=== PATIENT | male | born 1980 | race Caucasian/White ===

== ENCOUNTER 2017-03-22 16:52 | Emergency (ER) | payer BC ==
[2017-03-22 17:05] VITALS: BP 133/98
--- NOTE | 2017-03-22 17:39 | EDM.PDOC ---
ED HPI GENERAL MEDICAL PROBLEM - General Chief Complaint: Upper Extremity Injury/Pain Stated Complaint: R ARM GOT SLAMMED IN A DOOR Time Seen by Provider: 03/22/17 17:03 Source of Information: Reports: Patient History Limitations: Reports: No Limitations - History of Present Illness INITIAL COMMENTS - FREE TEXT/NARRATIVE: 37-year-old male presents for evaluation and treatment of right arm pain, bruising and swelling. Patient reports prior to arrival in the ER he got his distal humerus stuck in a door. He states the wind caught the door and slammed the door shut over his right distal humerus. He is currently complaining of pain and swelling to the right distal humerus. He is also experiencing numbness and tingling in the right distal arm. Ecchymosis present to the right distal humerus. No open wounds or obvious deformities. Patient is right-handed. Right Arm Pain Score (Numeric/FACES): 5 - Related Data Allergies Allergy/AdvReac Type Severity Reaction Status Date / Time No Known Allergies Allergy Verified 08/11/15 17:33 Home Meds: Home Meds Insulin Regular, Human [NovoLIN R] 20 unit SUBCUT ACBREAKFAST 08/11/15 [History] Insulin Regular, Human [NovoLIN R] 40 unit SUBCUT BIDAC 08/11/15 [History] Past Medical History Endocrine/Metabolic History: Reports: Diabetes, Type I - Past Surgical History HEENT Surgical History: Reports: Tonsillectomy GI Surgical History: Reports: Appendectomy Social & Family History - Family History Family Medical History: Noncontributory - Tobacco Use Smoking Status *Q: Current Every Day Smoker Years of Tobacco use: 16 Packs/Tins Daily: 0.5 - Recreational Drug Use Recreational Drug Use: No Review of Systems - Review of Systems Review Of Systems: See Below Musculoskeletal: Reports: Arm Pain (right distal humerus). Denies: Shoulder Pain, Joint Pain (no elbow or wrist pain) Skin: Reports: Bruising (right distal posterior humerus). Denies: Wound Neurological: Reports: Numbness (right forearm), Tingling (right forearm) ED EXAM, GENERAL - Physical Exam Exam: See Below Exam Limited By: No Limitations General Appearance: Alert, WD/WN, No Apparent Distress Respiratory/Chest: No Respiratory Distress Cardiovascular: Normal Peripheral Pulses, Regular Rate, Rhythm Peripheral Pulses: 2+: Radial (R) Extremities: Other (tenderness to palpation to the right distal posterior humerus; approximately 10m in diameter ecchymosis with surrounding swelling present to the area; no obvious deformity) Neurological: Alert, Oriented, Normal Cognition Psychiatric: Normal Affect, Normal Mood Skin Exam: Warm, Dry, Ecchymosis (right distal posterior humerus) Course - Vital Signs Last Recorded V/S: Last Vital Signs Temp Pulse 91 03/22/17 17:01 Resp 18 03/22/17 17:01 BP 133/98 H 03/22/17 17:01 Pulse Ox 98 03/22/17 17:01 - Orders/Labs/Meds Orders: Active Orders 24 hr Category Date Time Status Humerus Rt [CR] Stat Exams 03/22/17 17:17 Ordered - Radiology Interpretation Free Text/Narrative:: xray of the right humerus shows no acute fractures or dislocations - Re-Assessments/Exams Free Text/Narrative Re-Assessment/Exam: 03/22/17 17:38 Reviewed the x-ray results with the patient. We'll get a sling for his comfort. Discharge instructions as documented Departure - Departure Time of Disposition: 17:38 Disposition: Home, Self-Care 01 Condition: Good Clinical Impression: Contusion Qualifiers: Encounter type: initial encounter Contusion area: upper arm Laterality: right Qualified Code(s): S40.021A - Contusion of right upper arm, initial encounter - Discharge Information Referrals: Moiz Harris Jr, MD [Primary Care Provider] - Forms: ED Department Discharge, ED Return to Work/School Form Additional Instructions: [id number] Tylenol or Motrin for pain. Ice the sore area as much as possible. Elevate the arm, above the level of the heart as much as possible. Sling for your comfort. Follow-up with your family care provider if your symptoms are not much improved in 7 days. Please return to the ER if your symptoms change or worsen. Note given for work. - My Orders Last 24 Hours: My Active Orders 03/22/17 17:17 Humerus Rt [CR] Stat - Assessment/Plan Last 24 Hours: My Active Orders 03/22/17 17:17 Humerus Rt [CR] Stat
--- NOTE | 2017-03-23 07:17 | CR ---
Right humerus: Two views of the right humerus were obtained. Comparison: No prior humerus exam. No fracture or other bony abnormality is seen. Impression: 1. No abnormality is identified on right humerus study. Diagnostic code #1
== END 2017-03-22 17:55 | disposition home or self-care (01) ==
LOC: JD.ED 16:52
DX: S40.021A Contusion of right upper arm, initial encounter (principal); F17.210 Nicotine dependence, cigarettes, uncomplicated; W23.0XXA Caught, crushed, jammed, or pinched between moving objects, initial encounter
CPT/HCPCS: 73060-26-RT; 73060-RT; 99282; 99284

== ENCOUNTER 2017-06-01 21:23 | Emergency (ER) | payer OTHER, BC ==
[2017-06-01 21:34] VITALS: BP 127/82
[2017-06-01] MEDS ORDERED: Lidocaine 1% 10 ML MDV INJECT ONE (21:41)
[2017-06-01] MEDS ORDERED: Diphtheria,Pertussis(Acell),Tetanus Vaccine 0.5 ML SDV IM ONE (21:41)
--- NOTE | 2017-06-01 22:38 | EDM.PDOC ---
ED HPI GENERAL MEDICAL PROBLEM - General Chief Complaint: Upper Extremity Injury/Pain Stated Complaint: injury to hand Time Seen by Provider: 06/01/17 21:38 Source of Information: Reports: Patient, Family History Limitations: Reports: No Limitations - History of Present Illness INITIAL COMMENTS - FREE TEXT/NARRATIVE: The patient presents with a puncture wound to his left hand. He was drilling toward his hand and it went through and punctured his left hand at the base of the 3rd finger. He is right handed and his tetanus is not up to date. Onset: Sudden Duration: Minutes: Location: Reports: Upper Extremity, Left (hand) Quality: Reports: Sharp Severity: Moderate Improves with: Reports: None Worsens with: Reports: None Context: Reports: Activity (Drilling) Associated Symptoms: Reports: No Other Symptoms Left Hand Pain Score (Numeric/FACES): 5 - Related Data Allergies Allergy/AdvReac Type Severity Reaction Status Date / Time No Known Allergies Allergy Verified 06/01/17 21:30 Home Meds: Home Meds Insulin Regular, Human [NovoLIN R] 20 unit SUBCUT ACBREAKFAST 08/11/15 [History] Insulin Regular, Human [NovoLIN R] 40 unit SUBCUT DAILY 08/11/15 [History] Amoxicillin. 06/01/17 [History] Past Medical History Endocrine/Metabolic History: Reports: Diabetes, Type I - Past Surgical History HEENT Surgical History: Reports: Tonsillectomy GI Surgical History: Reports: Appendectomy Social & Family History - Family History Family Medical History: Noncontributory - Tobacco Use Smoking Status *Q: Current Every Day Smoker Years of Tobacco use: 20 Packs/Tins Daily: 0.5 - Recreational Drug Use Recreational Drug Use: No Review of Systems - Review of Systems Review Of Systems: See Below Constitutional: Reports: No Symptoms Eyes: Reports: No Symptoms Ears: Reports: No Symptoms Nose: Reports: No Symptoms Mouth/Throat: Reports: No Symptoms Respiratory: Reports: No Symptoms Cardiovascular: Reports: No Symptoms GI/Abdominal: Reports: No Symptoms Genitourinary: Reports: No Symptoms Musculoskeletal: Reports: Other (Puncture wound to left hand) ED EXAM, GENERAL - Physical Exam Exam: See Below Exam Limited By: No Limitations General Appearance: Alert, No Apparent Distress Ears: Normal External Exam Nose: Normal Inspection Head: Atraumatic, Normocephalic Neck: Normal Inspection Respiratory/Chest: No Respiratory Distress Extremities: Other (Puncture wound to the left volar aspect of his left hand at the base of the 3rd phalynx.) ED TRAUMA EXTREMITY PROCEDURES - Laceration/Wound Repair Left Hand Lac/Wound Length In cm: 1.5 Appearance: Irregular, Other (Puncture wound) Distal NVT: Neuro & Vascular Intact, No Tendon Injury Anesthetic Type: Local Local Anesthesia - Lidocaine (Xylocaine): 1% Plain Skin Prep: Saline Exploration/Debridement/Repair: Wound Explored, In a Bloodless Field, Explored to Base, Minimal Debridement Closed With: Sutures Suture Size: 4-0 # of Sutures: 3 Suture Type: Nylon, Interrupted, Simple Tetanus Status Addressed: Yes Complications: No Course - Vital Signs Last Recorded V/S: Last Vital Signs Temp 97.9 F 06/01/17 21:31 Pulse 90 06/01/17 21:31 Resp BP 127/82 06/01/17 21:31 Pulse Ox 98 06/01/17 21:31 - Orders/Labs/Meds Orders: Active Orders 24 hr Category Date Time Status Vaccines to be Administered [RC] PER UNIT ROUTINE Care 06/01/17 21:41 Active Meds: Medications Discontinued Medications Generic Name Dose Route Start Last Admin Trade Name Freq PRN Reason Stop Dose Admin Diphtheria/Tetanus/Acell Pertussis 0.5 ml 06/01/17 21:41 06/01/17 21:54 Adacel IM 06/01/17 21:42 0.5 ml .ONCE ONE Administration Lidocaine HCl 10 ml 06/01/17 21:41 06/01/17 21:55 Xylocaine 1% INJECT 06/01/17 21:42 10 ml ONETIME ONE Administration - Re-Assessments/Exams Free Text/Narrative Re-Assessment/Exam: 06/01/17 22:37 I updated his tetanus. Departure - Departure Time of Disposition: 22:40 Disposition: Home, Self-Care 01 Condition: Good Clinical Impression: Laceration of left hand Qualifiers: Encounter type: initial encounter Foreign body presence: without foreign body Qualified Code(s): S61.412A - Laceration without foreign body of left hand, initial encounter - Discharge Information Referrals: Moiz Harris Jr, MD [Primary Care Provider] - 1 Week Additional Instructions: Soak your hand in warm soapy water 2 times per day and apply antibiotics after. Have the sutures removed in 1 week. Look for any signs of infection such as redness, swelling, drainage or pain. If you see any of these signs follow up. You may oral antibiotics. - My Orders Last 24 Hours: My Active Orders 06/01/17 21:41 Vaccines to be Administered [RC] PER UNIT ROUTINE - Assessment/Plan Last 24 Hours: My Active Orders 06/01/17 21:41 Vaccines to be Administered [RC] PER UNIT ROUTINE
== END 2017-06-01 22:53 | disposition home or self-care (01) ==
LOC: JD.ED 21:23
DX: S61.432A Puncture wound without foreign body of left hand, initial encounter (principal); E10.9 Type 1 diabetes mellitus without complications; F17.210 Nicotine dependence, cigarettes, uncomplicated; Z23 Encounter for immunization; W29.8XXA Contact with other powered hand tools and household machinery, initial encounter
CPT/HCPCS: 12001; 90471; 90715; 99282-25; 99283-25

== ENCOUNTER 2021-05-19 16:30 | Inpatient (IN) | payer BC, OTHER ==
[2021-05-19] MEDS ORDERED: Sodium Chloride 0.9% 10 ML Syringe FLUSH PRN (17:41)
[2021-05-19] MEDS ORDERED: Ondansetron 4 MG/2 ML SDV IVPUSH ONE (17:41)
[2021-05-19] MEDS ORDERED: Sodium Chloride 0.9% 1,000 ML IV SCH (17:45)
[2021-05-19] MEDS ORDERED: Insulin Regular, Human 100 Units/ML 3 ML Vial IVPUSH ONE (18:05)
[2021-05-19] MEDS ORDERED: Lactated Ringers 1,000 ML IV ONE (19:10)
[2021-05-19] MEDS ORDERED: Ketorolac 30 MG/ML SDV IM PRN (21:25)
[2021-05-19] MEDS ORDERED: LORazepam 2 MG/ML SDV IV ONE (21:25)
[2021-05-19] MEDS ORDERED: Promethazine 25 MG Tab PO PRN (21:25)
[2021-05-19] MEDS: cefTRIAXone 2 GM in Sodium Chloride 0.9% 100 ML IV SCH (22:08)
[2021-05-20] MEDS ORDERED: Dextrose 5%-0.45% NaCl 1,000 ML IV SCH (00:15)
[2021-05-20] MEDS: Sodium Chloride 0.9% 1,000 ML IV SCH ×2 (00:21→08:09)
[2021-05-20] MEDS ORDERED: traZODone 50 MG Tab PO ONE (03:08)
[2021-05-20] MEDS ORDERED: Insulin Regular, Human 100 Units/ML 3 ML Vial SUBCUT SCH (06:00)
[2021-05-20] MEDS ORDERED: Insulin Lispro 100 Unit/ML 3 ML KwikPen SUBCUT ONE (07:51)
[2021-05-20] MEDS: Dextrose 5%-0.45% NaCl 1,000 ML IV SCH ×2 (09:27→11:22)
[2021-05-20] MEDS: Nicotine 14 MG/24 Hr Patch TRDERM SCH (09:29)
[2021-05-20] MEDS: Enoxaparin 40 MG/0.4 ML Syringe SUBCUT SCH (09:31)
[2021-05-20] MEDS ORDERED: Magnesium Sulfate/Water 2 GM in Premix Bag 1 BAG IV ONE (14:00)
[2021-05-20] MEDS: Insulin Lispro 100 Unit/ML 3 ML KwikPen SUBCUT SCH ×3 (14:01→20:56)
[2021-05-20] MEDS: Insulin Glargine,Hum.Rec.Anlog 100 UNIT/ML 3 ML Pen SUBCUT SCH (14:03)
[2021-05-20] MEDS: Potassium Chloride 10 MEQ in Premix Bag 1 BAG IV SCH ×4 (14:12→17:57)
[2021-05-20 14:30] LABS: HEMOGLOBIN A1C 9.7 %
[2021-05-20 15:37] LABS: CORONAVIRUS COVID-19 NAA POSITIVE (NEGATIVE)
[2021-05-20] MEDS ORDERED: REMDESIVIR 200 MG in Sodium Chloride 0.9% 250 ML IV ONE ×2 (19:04→19:30)
[2021-05-20] MEDS: cefTRIAXone 2 GM in Sodium Chloride 0.9% 100 ML IV SCH (21:01)
[2021-05-21] MEDS ORDERED: Magnesium Sulfate/Water 2 GM in Premix Bag 1 BAG IV ONE (07:57)
[2021-05-21] MEDS: Nicotine 14 MG/24 Hr Patch TRDERM SCH ×2 (08:18→08:35)
[2021-05-21] MEDS: Enoxaparin 40 MG/0.4 ML Syringe SUBCUT SCH (08:18)
[2021-05-21] MEDS: Insulin Lispro 100 Unit/ML 3 ML KwikPen SUBCUT SCH ×7 (08:25→20:25)
[2021-05-21] MEDS: Insulin Glargine,Hum.Rec.Anlog 100 UNIT/ML 3 ML Pen SUBCUT SCH (08:26)
[2021-05-21] MEDS ORDERED: REMDESIVIR 100 MG in Sodium Chloride 0.9% 100 ML IV SCH (20:00)
[2021-05-22] MEDS: Enoxaparin 40 MG/0.4 ML Syringe SUBCUT SCH (08:39)
[2021-05-22] MEDS: Insulin Glargine,Hum.Rec.Anlog 100 UNIT/ML 3 ML Pen SUBCUT SCH (08:40)
[2021-05-22] MEDS: Insulin Lispro 100 Unit/ML 3 ML KwikPen SUBCUT SCH ×4 (08:44→13:44)
[2021-05-22] MEDS: Nicotine 14 MG/24 Hr Patch TRDERM SCH (08:46)
[2021-05-22] MEDS ORDERED: Insulin Lispro 100 Unit/ML 3 ML KwikPen SUBCUT SCH (11:00)
[2021-05-22] MEDS ORDERED: Insulin Glargine,Hum.Rec.Anlog 100 UNIT/ML 3 ML Pen SUBCUT STA (12:44)
[2021-05-22] MEDS ORDERED: REMDESIVIR 100 MG in Sodium Chloride 0.9% 250 ML IV ONE (13:00)
[2021-05-22 13:48] VITALS: BP 124/88; PULSE 77
[2021-05-22] MEDS ORDERED: REMDESIVIR 100 MG in Sodium Chloride 0.9% 250 ML IV SCH (20:00)
[2021-05-23] MEDS ORDERED: Insulin Glargine,Hum.Rec.Anlog 100 UNIT/ML 3 ML Pen SUBCUT SCH (09:00)
== END 2021-05-22 14:13 | disposition home or self-care (01) | DRG 637 ==
LOC: JD.ED 16:30 → JD.ICU 20:56
PROVIDERS: ADMIT Family Medicine; ATTEND Pediatrics
PROC: XW033E5 Introduction of Remdesivir Anti-infective into Peripheral Vein, Percutaneous Approach, New Technology Group 5 (ICD-10-PCS; principal; 2021-05-20)
DX: E10.10 Type 1 diabetes mellitus with ketoacidosis without coma (principal); U07.1 COVID-19; E87.6 Hypokalemia; E83.42 Hypomagnesemia; N28.9 Disorder of kidney and ureter, unspecified; E86.0 Dehydration; F17.200 Nicotine dependence, unspecified, uncomplicated; Z90.49 Acquired absence of other specified parts of digestive tract
CPT/HCPCS: 0241U; 36415; 36600; 71045; 71045-26; 80048; 80053; 81001; 82009; 82803; 82947; 83036; 83735; 84484; 85025; 85652; 86140; 87040; 96374; 99285; 99285-25; A9270-GY; J0696; J1650; J1815-GY; J2405; J3475; J3480; J7030; J7042; J7050; J7120

== ENCOUNTER 2022-04-08 01:32 | Emergency (ER) | payer OTHER ==
[2022-04-08 04:54] VITALS: BP 120/70; PULSE 101
== END 2022-04-08 04:55 | disposition home or self-care (01) ==
LOC: JD.ED 01:32
DX: S89.91XA Unspecified injury of right lower leg, initial encounter (principal); E10.9 Type 1 diabetes mellitus without complications; F17.210 Nicotine dependence, cigarettes, uncomplicated; X50.1XXA Overexertion from prolonged static or awkward postures, initial encounter; Y92.89 Other specified places as the place of occurrence of the external cause; Y99.0 Civilian activity done for income or pay
CPT/HCPCS: 73562-26-RT; 73562-RT; 99283